=== PATIENT | female | born 1965 | race Caucasian/White ===

== ENCOUNTER 2020-05-30 13:48 | Emergency (ER) | payer OTHER ==
[~2020-05-30] VITALS: Ht 165.1 cm; Wt 52.2 kg
[2020-05-30] MEDS ORDERED: NAPROSYN500 MG PO (15:10)
[2020-05-30] MEDS ORDERED: AUGMENTIN 875-1 EACH PO (15:10)
[2020-05-30 15:30] VITALS: BP 142/89
== END 2020-05-30 15:25 | disposition home or self-care (01) ==
LOC: ER 13:48
DX: S81.811A Laceration without foreign body, right lower leg, initial encounter (principal); F17.210 Nicotine dependence, cigarettes, uncomplicated; W54.0XXA Bitten by dog, initial encounter; Y93.89 Activity, other specified; Y92.89 Other specified places as the place of occurrence of the external cause; Y99.8 Other external cause status

== ENCOUNTER 2020-08-07 17:45 | Emergency (ER) | payer OTHER ==
[~2020-08-07] VITALS: Ht 165.1 cm; Wt 50.8 kg
[~2020-08-07 17:45] MED LIST: AUGMENTIN 875-1 EACH PO; NAPROSYN500 MG PO
[2020-08-07 18:33] LABS: ABSOLUTE NEUTROPHILS 10.7 thou/uL (1.4-8.2); BASOPHILS 0.4 % (0.0-2.0); HEMATOCRIT 41.8 % (37.0-47.0); LYMPHOCYTES 5.4 % (24.0-44.0); MCH 33.5 pg (26.0-34.0); MCHC 33.4 g/dL (28.0-37.0); MCV 100.3 fL (80.0-100.0); MONOCYTES 9.9 % (1.0-8.0); PLATELET COUNT 240 thou/uL (150-400); POLYS 84.3 % (36.0-66.0); RBC 4.17 mil/uL (4.20-5.00); RDW 14.1 % (10.5-14.5); WBC 12.7 thou/uL (4.0-11.0)
[2020-08-07 18:37] LABS: CREATININE 1.3 mg/dL (0.6-1.0); POTASSIUM 4.4 mmol/L (3.5-5.1)
[2020-08-07 18:44] LABS: ALBUMIN 4.2 g/dL (3.4-5.0); TOTAL BILIRUBIN 0.7 mg/dL (0.2-1.0); TOTAL PROTEIN 7.7 g/dL (6.4-8.2)
[2020-08-07 18:48] LABS: APTT 28.8 Seconds (24.5-32.8); PROTIME 10.7 Seconds (9.3-11.4)
[2020-08-07 18:56] LABS: URINE BILIRUBIN NEGATIVE (Negative); URINE BLOOD NEGATIVE (Negative); URINE CLARITY CLEAR; URINE COLOR YELLOW; URINE GLUCOSE-RANDOM* NEGATIVE (Negative); URINE KETONES NEGATIVE (Negative); URINE LEUKOCYTES-REFLEX NEGATIVE (Negative); URINE NITRITE-REFLEX NEGATIVE (Negative); URINE PROTEIN (DIPSTICK) NEGATIVE (Negative); URINE SPECIFIC GRAVITY 1.015 (1.005-1.035); URINE UROBILINOGEN 0.2 E.U./dl (0.2-1.0)
[2020-08-07 19:14] LABS: AMP/METHAMP POSITIVE (Negative); BARBITURATES Negative (Negative); BENZODIAZEPINES POSITIVE (Negative); COCAINE Negative (Negative); METHADONE Negative (Negative); OPIATES POSITIVE (Negative); PCP Negative (Negative)
[2020-08-07] MEDS ORDERED: LEXAPRO20 MG PO (19:43)
[2020-08-07] MEDS ORDERED: XANAX 0.5 MG0.5 MG PO (19:43)
[2020-08-07 21:38] VITALS: BP 105/75
== END 2020-08-07 21:38 | disposition short-term general hospital (02) ==
LOC: ER 17:45
PROVIDERS: Emergency Medicine
DX: S06.5X9A Traumatic subdural hemorrhage with loss of consciousness of unspecified duration, initial encounter (principal); S01.01XA Laceration without foreign body of scalp, initial encounter; S30.0XXA Contusion of lower back and pelvis, initial encounter; F15.10 Other stimulant abuse, uncomplicated; F13.10 Sedative, hypnotic or anxiolytic abuse, uncomplicated; M54.2 Cervicalgia; M25.511 Pain in right shoulder; F17.210 Nicotine dependence, cigarettes, uncomplicated; Z72.89 Other problems related to lifestyle; Z79.899 Other long term (current) drug therapy; W10.8XXA Fall (on) (from) other stairs and steps, initial encounter; Y93.89 Activity, other specified; Y92.098 Other place in other non-institutional residence as the place of occurrence of the external cause; Y99.8 Other external cause status